=== PATIENT | female | born 1995 | race Caucasian/White ===

== ENCOUNTER 2024-06-17 19:22 | Emergency (ER) | payer MEDICAID, OTHER ==
[~2024-06-17] VITALS: Ht 160 cm; Wt 74.8 kg
[2024-06-17] MEDS ORDERED: METR70GE17 VG (20:48)
[2024-06-17 22:22] VITALS: BP 132/84; TEMP 98.5; O2SAT 99
== END 2024-06-17 22:23 | disposition home or self-care (01) ==
LOC: ER 19:35
DX: N76.0 Acute vaginitis (principal); B96.89 Other specified bacterial agents as the cause of diseases classified elsewhere; Z88.0 Allergy status to penicillin; Z88.1 Allergy status to other antibiotic agents